=== PATIENT | male | born 1980 | race Caucasian/White ===

== ENCOUNTER 2021-01-15 14:46 | Emergency (ER) | payer OTHER, SELFPAY ==
[2021-01-15 14:57] VITALS: BP 178/106; PULSE 90; RESP 16; TEMP 36.4; O2SAT 100
--- NOTE | 2021-01-15 15:20 | ED.BACK ---
HPI - Back Pain/Injury General Chief Complaint: Back Pain/Injury Stated Complaint: Back Pain Time Seen by Provider: 01/15/21 15:15 Source: patient and RN notes reviewed Mode of arrival: ambulatory Limitations: no limitations History of Present Illness HPI Narrative: 40-year-old male presents with concern for right low back pain that radiates to the right leg. Reports history of sciatica. Reports flareups every several months. Reports he has been using ibuprofen and a friend's muscle relaxers with partial relief. Reports he has been also using icy hot and Biofreeze. He denies loss of bowel or bladder function, denies perianal anesthesia, fever, abdominal pain. Reports pain is exacerbated by sitting, bending over. Reports no pain when standing. MD elicited complaint: back pain Related Data Allergies Allergy/AdvReac Type Severity Reaction Status Date / Time No Known Allergies Allergy Unverified 03/09/18 09:15 Review of Systems Review of Systems: CONSTITUTIONAL: Denies malaise, chills, sweats, or fever. CARDIOVASCULAR: Denies chest pain, palpitations, or edema. RESPIRATORY: Denies cough or dyspnea. GASTROINTESTINAL: Denies abdominal pain, nausea, vomiting, diarrhea denies loss of bowel function GENITOURINARY: Denies loss of bladder function SKIN: Denies bruising, redness, open skin MUSCULOSKELETAL: Reports right low back pain that radiates to the right leg NEUROLOGIC: Reports right leg partial numbness. Denies weakness All systems reviewed & are unremarkable except as noted in HPI and below PMFSH Comments At time of signature, agree with nursing past medical, surgical, social and family history. There is no relevant family history pertinent to the presenting complaint Exam Narrative: GENERAL: Well-appearing, well-nourished, and in no acute distress. HEAD: Normocephalic, atraumatic. EYES: PERRLA and EOMI. NECK: Supple. No lymphadenopathy. CHEST: Clear to auscultation. No respiratory distress. HEART: Regular rate and rhythm. Distal pulses palpable and equal, cap refill <3 seconds ABDOMEN: Soft, nontender, nondistended, normal active bowel sounds, no palpable or pulsatile masses. No CVA tenderness MUSCULOSKELETAL: Normal range of motion and strength in all extremities; 5/5 strength with hip flexion and extension, dorsiflexion and extension, knee flexion and extension, plantar flexion and extension. Normal sensation in dermatomal distributions with sensitivity to light touch and pain. No midline back tenderness to palpation. No paraspinal tenderness. Transfers from sitting to standing. SKIN: Warm, dry, no rash. No ecchymosis, erythema, open wounds to back. NEURO: No focal deficits. Alert and oriented x3. Reflexes intact. Normal gait. PSYCH: Normal mood and affect Course Course Emergency Course: Patient is aware of diagnosis, understands and agrees to treatment plan. Anticipatory guidance given. Patient agrees to follow-up as directed and is aware of reasons to seek care at the emergency department. Portions of this record may have been created with voice recognition software Vital Signs Vital signs: Vital Signs Temperature 97.6 F 01/15/21 14:57 Pulse Rate 90 01/15/21 14:57 Respiratory Rate 16 01/15/21 14:57 Blood Pressure 178/106 H 01/15/21 14:57 Pulse Oximetry 100 01/15/21 14:57 Temperature 97.6 F 01/15/21 14:57 Pulse Rate 90 01/15/21 14:57 Respiratory Rate 16 01/15/21 14:57 Blood Pressure 178/106 H 01/15/21 14:57 Pulse Oximetry 100 01/15/21 14:57 Reviewed. Pt has been instructed to follow up with his primary care provider within the next week regarding his elevated blood pressure today. MDM - Back Pain/Injury MDM Narrative Medical decision making narrative: No risk factors or findings concerning for epidural abscess, diskitis, vertebral osteomyelitis, cord compression, cauda equina, vertebral fracture or bone malignancy, AAA, or pyelonephritis. Patient instructed to consider further im
== END 2021-01-15 15:28 | disposition home or self-care (01) ==
PROVIDERS: Emergency Provider Nurse Practitioner
DX: M54.5 Low back pain (principal)
CPT/HCPCS: 99213; G0463

== ENCOUNTER 2023-05-21 11:48 | Emergency (ER) | payer OTHER, SELFPAY ==
[2023-05-21 12:01] VITALS: BP 151/90; PULSE 93; RESP 16; TEMP 37.2; O2SAT 99
--- NOTE | 2023-05-21 12:02 | ED.DENTAL ---
HPI - Dental/Oral General Chief complaint: Dental/Oral Stated complaint: right side tooth pain Time Seen by Provider: 05/21/23 11:53 Source: patient Mode of arrival: ambulatory Limitations: no limitations History of Present Illness HPI Narrative: Myles is a 42-year-old male patient presenting to the clinic today with complaints of right upper dental pain. He reports that he has 3 bad teeth and thinks there may be a dental abscess. Pain is been going on for 1 week. No fever or chills. Related Data Home Medications Medication Instructions Recorded Confirmed dulaglutide 0.75 mg/0.5 mL 0.75 mg subcut DIRECTED 05/21/23 05/21/23 subcutaneous pen injector (Trulicity) lisinopril 40 mg tablet 40 mg DIRECTED 05/21/23 05/21/23 omeprazole 40 mg capsule,delayed 40 mg DIRECTED 05/21/23 05/21/23 release Allergies Allergy/AdvReac Type Severity Reaction Status Date / Time No Known Allergies Allergy Unverified 03/09/18 09:15 Review of Systems Review of Systems: Pertinent positives per HPI. Patient denies any fever, chills, rash, headache, visual changes, dizziness, cough, shortness of breath, chest pain, palpitations, nausea, vomiting, diarrhea, constipation, abdominal pain, or any urinary issues. PMFSH Comments At the time of my signature, I reviewed and agree with the nursing past medical, surgical, social, and family history. There is no relevant family history pertinent to the patient complaint. Exam Narrative: General: Well-developed, well nourished, in no apparent distress Head: Normocephalic, atraumatic Eyes: Pupils equally round and reactive to light bilaterally, EOM intact, sclera and conjunctive clear, no discharge, lids normal Ears: TMs intact and clear, ear canals clear, no drainage, grossly hearing normal. Nose: Nares patent, no discharge, no inflammation, no sinus tenderness. Mouth: Oral pharynx without lesions or masses, for dentition, MMM. Decayed/fractured number 11 12 and 13 with redness and swelling in the gums. No palpable abscess Neck: Supple, trachea midline, no enlargement of anterior or posterior cervical nodes, no thyroid masses or goiter palpable. Cardio: Regular rate and rhythm, s1 and s2 normal, no murmur appreciated. Resp: Clear to auscultation bilaterally, no rhonchi, rales, wheezing or rubs Course Course Emergency Course: Portions of this record may have been created with voice recognition software. Level of Care: Express Care Visit Vital Signs Vital signs: Vital Signs Temperature 37.2 C 05/21/23 12:01 Pulse Rate 93 05/21/23 12:01 Respiratory Rate 16 05/21/23 12:01 Blood Pressure 151/90 H 05/21/23 12:01 Pulse Oximetry 99 05/21/23 12:01 Oxygen Delivery Room Air 05/21/23 12:01 Temperature 37.2 C 05/21/23 12:01 Pulse Rate 93 05/21/23 12:01 Respiratory Rate 16 05/21/23 12:01 Blood Pressure 151/90 H 05/21/23 12:01 Pulse Oximetry 99 05/21/23 12:01 Oxygen Delivery Room Air 05/21/23 12:01 Vital signs reviewed MDM - Dental/Oral MDM Narrative Medical decision making narrative: At the time of visit patient is resting comfortably on the exam table. Patient appears to be nontoxic. I suspect patient has a dental infection. Prescription for Augmentin and ibuprofen was sent to pharmacy. Supportive measures were discussed with the patient and they voiced understanding discharge instructions and agrees to treatment plan. Return precautions reviewed Differential Diagnosis Differential diagnosis: Likely gingival abscess, dental caries, toothache, dental abscess, fracture of tooth, aphthous ulcer and other (COVID) Discharge Plan Discharge Clinical Impression: Dental infection Patient Disposition: Home, Self-Care Condition: Stable Instructions: Antibiotic Form, Toothache (ED) Additional Instructions: Increase fluids and stay well hydrated Take Augmentin as prescribed May take Tylenol/ibuprofen as needed
== END 2023-05-21 12:20 | disposition home or self-care (01) ==
PROVIDERS: Emergency Provider Nurse Practitioner Family
DX: K04.7 Periapical abscess without sinus (principal); I10 Essential (primary) hypertension; K21.9 Gastro-esophageal reflux disease without esophagitis; E11.9 Type 2 diabetes mellitus without complications
CPT/HCPCS: 99213; G0463